=== PATIENT | male | born 1975 | race Caucasian/White ===

== ENCOUNTER → 2016-05-26 | Outpatient (CLI) | payer OTHER ==
[~2016-05-26] MED LIST: CONRAY-43 43% 50ML VIAL (Q9960) As Ordered ONE
--- NOTE | 2016-05-26 09:27 | REP ---
MR arthrography right shoulder: with pre- and post intra-articular gadolinium enhanced saline injected imaging: History: Right shoulder pain. No comparison radiographs available. Technique: The injection procedure is performed and dictated separately. Pre and post intra-articular gadolinium enhanced saline injected imaging is acquired. Imaging planes include axial, oblique coronal, oblique sagittal and ABER projection images. T1 T2-weighted scans are included with and without fat saturation. MRI findings: The glenohumeral and acromioclavicular joints are normally aligned. Cortical and medullary bone signal intensity are normal. 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 There is thickening and increased signal intensity in the supraspinatus tendon on pre- injection oblique coronal T1 and T2-weighted scans. There is a focal partial-thickness T2 hyperintense lesion in the distal supraspinatus tendon at its distal insertion on the synovial side of the tendon consistent with a partial cuff tear in this location. There is a thin sliver of subacromial subdeltoid bursal fluid. Minimal inferolateral spurring of the acromion process is seen. There is thickening and increased signal intensity in the distal subscapularis tendon as well consistent with tendonitis tendinosis. The biceps and infraspinatus tendons appear to be intact. Post injection imaging shows good filling and enhancement of the right glenohumeral articulation. There is no evidence of cartilaginous labral tear. Postinjection T1-weighted fat sat images show no evidence of full-thickness cuff tear. No loose body is seen. Post injection imaging shows some fraying of the superior labrum without displacement. ABER image shows no evidence of anterior labral tear. Impression: 1. Mild AC joint hypertrophy, inferolateral acromion process spurring, and a thin sliver of bursal fluid. 2. Tendonitis tendinosis change in the distal supraspinatus and subscapularis tendons. Focal partial thickness synovial side distal supraspinatus cuff lesion seen. No full-thickness tear seen. 3. Mild fraying of the superior labrum seen on post injection imaging. Signed by Thor Morel MD 05/26/2016 10:30 A
--- NOTE | 2016-05-26 16:35 | REP ---
Procedure: Right shoulder arthrogram The procedure was performed under the direct supervision of Dr. Morel. History: Right shoulder pain The benefits and risks including but not limited to pain, infection, bleeding and anaphylaxis were explained to the patient and informed consent was obtained. Technique: The right glenohumeral joint space was localized using fluoroscopic guidance. The skin was prepped and draped in a sterile fashion. 1% lidocaine was used as a local anesthetic. Using fluoroscopic guidance a 22 gauge spinal needle was inserted and advanced into the joint. 0.5 ml of Conray 43 was injected to verify placement. 11 ml of a solution containing 20 ml of sterile saline and 0.15 ml of ProHance was injected into the joint. The needle was removed and the patient was taken to MRI for postprocedural imaging. The the patient tolerated the procedure well and there were no immediate complications. 1 second of fluoro time was utilized for this procedure. Reviewed by CONCHA Schwartz 05/26/2016 03:18 PSigned by Thor Morel MD 05/26/2016 04:26 P
== END | disposition home or self-care (01) ==
LOC: M RADPRO 07:08
PROVIDERS: ATTEND Physician Assistant
DX: M19.011 Primary osteoarthritis, right shoulder (principal); M25.711 Osteophyte, right shoulder; M75.81 Other shoulder lesions, right shoulder; S43.431A Superior glenoid labrum lesion of right shoulder, initial encounter; X58.XXXA Exposure to other specified factors, initial encounter; Y92.89 Other specified places as the place of occurrence of the external cause; Y93.89 Activity, other specified; Y99.8 Other external cause status
CPT/HCPCS: 23350; 73223; 77002; A9576; Q9960